=== PATIENT | male | born 1970 | race Caucasian/White ===

== ENCOUNTER 2023-06-24 04:31 | Emergency (ER) | payer OTHER, SELFPAY ==
[2023-06-24 04:33] VITALS: BP 133/84
[2023-06-24 04:56] VITALS: BP 112/74
--- NOTE | 2023-06-24 04:59 | ED.GENMED ---
History of Present Illness
<YULIANA Hansen - Last Filed: 06/24/23 06:11>
General
Chief Complaint: Dizziness
Source: patient
Time Seen by Provider: 06/24/23 04:59
Travel History
Have you had any contact with someone who has COVID-19?: No
Do you have any symptoms of coronavirus? Fever > 100 degrees, chills, cough, shortness of breath, sore throat, loss of taste or smell, muscle aches, or headache?: No
History of Present Illness
History of Present Illness:
Pt is a 53 year old male presenting for vertigo. He describes the vertigo as a spinning sensation and states it feels like 'I am going to fall over'. He reports it began at 2 am when he got out of bed. He also reports associated diarrhea, diffuse
pins and needles sensation, and nausea since 2 am. He denies vomiting, SOB, chest pain, double vision, tinnitus, hearing loss, MARTINEZ, numbness, weakness, associated trauma, photophobia. He reports he has been drinking water. He states when he walks the
spinning sensation is worse. He reports he has not taken anything to attempt to improve his symptoms. He states he was here on 03/25/23 for similar symptoms and states he fell from his vertigo during that episode. He state nothing was done for his
vertigo at that time and reports no abnormal findings.
Past History
<YULIANA Hansen - Last Filed: 06/24/23 06:11>
Past History
ED Past Medical History: HTN and Hypercholesterolemia
ED Past Surgical History: Orthopedic
Patient has exhibited threatening behavior?: No
Social History
Tobacco: Non-smoker
Alcohol: None
Drug: None
Personal:
Living: with family
Family History
Family History: Negative Diabetes, Hypertension or CAD
Review of Systems
<YULIANA Hansen - Last Filed: 06/24/23 06:11>
Review of Systems
All Other Systems: Not applicable
Constitutional: Reports no symptoms
EENT: Reports no symptoms
Respiratory: Reports no symptoms
Cardiac: Reports no symptoms
ABD/GI: Reports abdominal pain (mild), nausea and diarrhea
: Reports no symptoms
Musculoskeletal: Reports no symptoms
Skin: Reports no symptoms
Neurological: Reports other (vertigo, pins and needles sensation)
Endocrine: Reports no symptoms
Hematologic/Lymphatic: Reports no symptoms
Psychiatric: Reports depression
Phy Exam
<YULIANA Hansen - Last Filed: 06/24/23 06:11>
General Physical Exam
General Presentation: well appearing and no apparent distress
General age: appears stated age
General Skin: warm and dry
General Habitus: obese
General Mental: alert
General Hydration: dry mucous membranes
ENT Exam
ENT Exam: EOMI, TM's normal (cerumen present in canal), pharynx normal, neck supple and normocephalic
Eye Exam
Eye Exam: PERRL, EOMI and conjunctiva normal
Cardiovascular Exam
Cardiovascular Exam: regular rate/rhythm, no edema and no murmur
Pulmonary Exam
Pulmonary Exam: lungs clear, no respiratory distress, no rales, no crackles, no rhonchi, no wheezing and no cough
Gastrointestinal Exam
Gastrointestinal Exam: normal bowel sounds, non tender and soft
Neurological Exam
Neurological Exam: alert, oriented x3, no sensory deficits and other (Vertigo sensation elicited with lateral rotation of head.)
Mental
Mental Status: oriented to person, oriented to place, oriented to time and responds to voice
Sensory
Sensory Exam: intact
Cerebellar
Cerebellar Function: normal finger to nose
Skin Exam
Skin Exam: normal color and warm/dry
Psychiatric Exam
Psychiatric Exam: normal mood/affect
Course
<ST JadeHI - Last Filed: 06/24/23 06:11>
Orders/Labs/Results
Orders:
Orders
06/24/23 04:38
Electrocardiogram (*1) Urgent
Reason for Study: Vertigo / Dizzy
EKG- Treatment ONCE
06/24/23 04:57
CMP [Comprehensive Metabolic Panel] Urgent
Complete Blood Count/With Diff Urgent
Manual Differential Urgent
06/24/23 05:19
0.9% Sodium Chloride 500 ml [Nss] 500 ml IV BOLUS
06/24/23 05:21
CT Head W/o Iv Contrast Urgent
Comment:
Reason For Exam: vertigo
06/24/23 05:51
Meclizine [Antivert] 25 mg PO NOW STA
06/24/23 06:31
0.9% Sodium Chloride 1000 ml [Nss] 1,000 ml IV BOLUS
06/24/23 06:42
0.9% Sodium Chloride 500 ml [Nss] 0 ml IV ONCE
06/24/23 06:45
0.9% Sodium Chloride 500 ml [Nss] 500 ml IV BOLUS
Abnormal Lab Results
06/24/23
04:57
WBC 11.4 H 10^3/uL
(4.8-10.8)
RBC 4.64 L 10^6/uL
(4.70-6.10)
Hct 38.5 L %
(39.0-52.0)
Carbon Dioxide 21 L mmol/L
(22-30)
BUN 22 H mg/dl
(9-20)
Glucose 126 H mg/dl
(70-99)
Calcium 10.3 H mg/dl
(8.4-10.2)
06/24/23 04:57
06/24/23 04:57
Vital Signs
Initial and Last Documented VS:
Initial Vital Signs
Temp Pulse Resp BP Pulse Ox
98 F 86 24 133/84 97
06/24/23 04:33 06/24/23 04:33 06/24/23 04:33 06/24/23 04:33 06/24/23 04:33
Last Documented Vital Signs
Temp Pulse Resp BP Pulse Ox
98 F 71 19 110/69 92
06/24/23 04:33 06/24/23 05:30 06/24/23 05:30 06/24/23 05:00 06/24/23 05:30
<Smooth Douglas, DO - Last Filed: 06/24/23 06:34>
Orders/Labs/Results
Orders:
Orders
06/24/23 04:38
Electrocardiogram (*1) Urgent
Reason for Study: Vertigo / Dizzy
EKG- Treatment ONCE
06/24/23 04:57
CMP [Comprehensive Metabolic Panel] Urgent
Complete Blood Count/With Diff Urgent
Manual Differential Urgent
06/24/23 05:19
0.9% Sodium Chloride 500 ml [Nss] 500 ml IV BOLUS
06/24/23 05:21
CT Head W/o Iv Contrast Urgent
Comment:
Reason For Exam: vertigo
06/24/23 05:51
Meclizine [Antivert] 25 mg PO NOW STA
06/24/23 06:31
0.9% Sodium Chloride 1000 ml [Nss] 1,000 ml IV BOLUS
06/24/23 06:42
0.9% Sodium Chloride 500 ml [Nss] 0 ml IV ONCE
06/24/23 06:45
0.9% Sodium Chloride 500 ml [Nss] 500 ml IV BOLUS
Abnormal Lab Results
06/24/23
04:57
WBC 11.4 H 10^3/uL
(4.8-10.8)
RBC 4.64 L 10^6/uL
(4.70-6.10)
Hct 38.5 L %
(39.0-52.0)
Carbon Dioxide 21 L mmol/L
(22-30)
BUN 22 H mg/dl
(9-20)
Glucose 126 H mg/dl
(70-99)
Calcium 10.3 H mg/dl
(8.4-10.2)
06/24/23 04:57
06/24/23 04:57
Vital Signs
Initial and Last Documented VS:
Initial Vital Signs
Temp Pulse Resp BP Pulse Ox
98 F 86 24 133/84 97
06/24/23 04:33 06/24/23 04:33 06/24/23 04:33 06/24/23 04:33 06/24/23 04:33
Last Documented Vital Signs
Temp Pulse Resp BP Pulse Ox
98 F 71 19 110/69 92
06/24/23 04:33 06/24/23 05:30 06/24/23 05:30 06/24/23 05:00 06/24/23 05:30
<Francisco Contreras MD - Last Filed: 06/24/23 08:23>
Orders/Labs/Results
Orders:
Orders
06/24/23 04:38
Electrocardiogram (*1) Urgent
Reason for Study: Vertigo / Dizzy
EKG- Treatment ONCE
06/24/23 04:57
CMP [Comprehensive Metabolic Panel] Urgent
Complete Blood Count/With Diff Urgent
Manual Differential Urgent
06/24/23 05:19
0.9% Sodium Chloride 500 ml [Nss] 500 ml IV BOLUS
06/24/23 05:21
CT Head W/o Iv Contrast Urgent
Comment:
Reason For Exam: vertigo
06/24/23 05:51
Meclizine [Antivert] 25 mg PO NOW STA
06/24/23 06:31
0.9% Sodium Chloride 1000 ml [Nss] 1,000 ml IV BOLUS
06/24/23 06:42
0.9% Sodium Chloride 500 ml [Nss] 0 ml IV ONCE
06/24/23 06:45
0.9% Sodium Chloride 500 ml [Nss] 500 ml IV BOLUS
Abnormal Lab Results
06/24/23
04:57
WBC 11.4 H 10^3/uL
(4.8-10.8)
RBC 4.64 L 10^6/uL
(4.70-6.10)
Hct 38.5 L %
(39.0-52.0)
Carbon Dioxide 21 L mmol/L
(22-30)
BUN 22 H mg/dl
(9-20)
Glucose 126 H mg/dl
(70-99)
Calcium 10.3 H mg/dl
(8.4-10.2)
06/24/23 04:57
06/24/23 04:57
Vital Signs
Initial and Last Documented VS:
Initial Vital Signs
Temp Pulse Resp BP Pulse Ox
98 F 86 24 133/84 97
06/24/23 04:33 06/24/23 04:33 06/24/23 04:33 06/24/23 04:33 06/24/23 04:33
Last Documented Vital Signs
Temp Pulse Resp BP Pulse Ox
98 F 71 19 110/69 92
06/24/23 04:33 06/24/23 05:30 06/24/23 05:30 06/24/23 05:00 06/24/23 05:30
Amorlt;YULIANA Hansen - Last Filed: 06/24/23 06:11>
MDM/Problems Addressed
Differential Diagnosis Includes:
BPPV, Meniere's disease, vestibular neuritis, dehydration, space occupying lesion
MDM/Problems Addressed:
Vertigo since 2 a.m.
Chronic conditions affecting care: HTN
<YULIANA Hansen - Last Filed: 06/24/23 06:11>
*EKG
Interpreted by ED Provider?: Yes
Interpretation: abnormal
Comparison EKG: no changes
Rate: normal
Rhythm: sinus
*Critical Care Note
Total Time (30-74mins, 75-104mins- exclusive of procedures): Not Applicable
Data Reviewed
Review of Other/Old Records Reveals: Records and Discharge Summary
Source: records
<Francisco Contreras MD - Last Filed: 06/24/23 08:23>
Update Note
Update Note:
Pt reports sig. improvement after treatment. Pt able to ambulated independently with steady gait, prior to discharge. Prescription for meclizine will be provided, to be used at home, along with pcp/neurology f/u. Pt expresses understanding at time
of discharge.
ED Attending Note
<YULIANA Hansen - Last Filed: 06/24/23 06:11>
-
Portions of this chart may have been created with voice recognition software.� Occasional wrong word or��sound alike� substitutions may have occurred due to the inherent limitations of voice recognition software.
<Smooth Douglas DO - Last Filed: 06/24/23 06:34>
ED Attending Note
Patient seen and examined by attending physician: Yes
I performed the substantive portion of visit, reviewed & personally made and approve the management plan that is documented in note by myself or QAMAR.: Yes
ED Attending Note:
Pleasant 53-year-old male presents with symptoms consistent with vertigo. He states that he felt that he was going to fall over. Symptoms began around 2 AM when he got out of bed. Patient denies chest pain or shortness of breath. He states that
he had similar symptoms when he was here in February. Patient denies fever, chills, chest pain, or shortness of breath. Patient was seen in conjunction with the PA student. I have reviewed and agree with the history and treatment plan presented.
On my independent physical exam, patient is awake, alert, and oriented x3 heart is regular rate rhythm. Lungs are clear to auscultation bilaterally no wheezes rales or rhonchi
Discharge Plan
Departure
Patient Disposition: Home (Routine Discharge)
Date of Disposition: 06/24/23
Time of Disposition: 08:19
Patient with high blood pressure during this ER visit?: No
Condition: Good
Covid-19: Not Applicable
Discharge Problem:
Vertigo
Instructions: Vertigo (a type of dizziness), Dehydration, Adult (DC)
Prescriptions:
New
meclizine 25 mg tablet
25 mg PO TID Qty: 20 0RF
No Action
escitalopram oxalate 10 MG tablet
10 mg PO DAILY
diphenoxylate-atropine 1 TABLET tablet
1 tab PO Q6HPRN PRN (Reason: diarrhea) Qty: 12 0RF
losartan
1 tab PO DAILY
Patient Comments:
unsure of mg
Referrals:
Arti Chan, DO [Active] -
UNKNOWN - PT DOES,NOT KNOW [Family Provider] -
Activity Restrictions/Additional Instructions:
It was a pleasure meeting you and taking part in your care. We hope for your continued healing and wellness.
Please read discharge instructions in their entirety. However, they are for general education and may not describe your exact diagnosis at discharge. Information on your ER visit and medical conditions were discussed with you along with appropriate
follow up information...
If indicated, please take your medications as instructed and indicated on discharge paperwork.
Please schedule a follow up appointment as directed. Call to schedule an appointment
Please return to the emergency department with ANY change in, persisting, or worsening of symptoms. If any of your symptoms do not improve, or persist, or become more severe within 6-12 hours, please return to the emergency department for further
care.
Please return to the emergency department if you develop a headache, neck pain/stiffness, fever greater than 100.4F, chest pain, shortness of breath, persistent nausea, vomiting, slurred speech, difficulty walking, numbness/tingling, weakness, signs
of infection or any other symptoms that are worrisome to you.
If you have any questions or concerns please do not hesitate to call the Hospital at or E-mail me directly at [email or web address]
Interventions
Interventions:
*Risk Screen - Suicide Last Done: 06/24/23 04:50
*General Assessment Last Done: 06/24/23 04:50
ED- Fall Risk Assessment Last Done: 06/24/23 04:50
*ED COVID-19 Vaccine History Last Done: 06/24/23 04:50
ED- Neurological Assessment Last Done: 06/24/23 04:50
ED- Cardiac Assessment Last Done: 06/24/23 04:50
ED Swallowing Screen Last Done: 06/24/23 04:50
Discharge Date and Time
Print Language: OCCITAN
[2023-06-24 05:00] VITALS: BP 110/69
[2023-06-24 05:06] VITALS: BMI 39.4
[2023-06-24 05:09] LABS: Hematocrit 38.5 % (39.0-52.0); Hemoglobin 13.3 g/dL (13.0-18.0); Mean Corp Hgb Conc. 34.5 g/dL (33.0-37.0); Mean Corpuscular Hgb 28.7 pg (27.0-31.0); Mean Platelet Volume 9.5 fL (7.4-10.4); Nucleated Red Blood Cells % 0 % (-); Platelet Count 327 10^3/uL (130-400); Red Blood Cell Count 4.64 10^6/uL (4.70-6.10); Red Cell Dist. Width 13.7 % (11.5-14.5); White Blood Cell Count 11.4 10^3/uL (4.8-10.8)
[2023-06-24 05:18] LABS: ALT (SGPT) 28 U/L (0-50); AST (SGOT) 25 U/L (17-59); Albumin 4.8 g/dl (3.5-5.0); Alkaline Phosphatase 97 U/L (38-126); Blood Urea Nitrogen 22 mg/dl (9-20); Calcium 10.3 mg/dl (8.4-10.2); Carbon Dioxide 21 mmol/L (22-30); Chloride 103 mmol/L (98-107); Estimated Creatinine Clearance > 125 ml/min; Glucose 126 mg/dl (70-99); Potassium 3.8 mmol/L (3.5-5.1); Sodium 138 mmol/L (135-145); Total Bilirubin 0.4 mg/dl (0.2-1.3); Total Protein 7.8 g/dl (6.3-8.2); eGFR > 60.00
[2023-06-24] MEDS: NSS 500 IV ×2 (05:32→05:50)
[2023-06-24 05:42] LABS: Segmented Neutrophils 45 % (42-75)
[2023-06-24 05:43] LABS: Absolute Neutrophils -Man Diff 5.1 10^3/uL (1.4-6.5); Atypical Lymphocytes 6 %; Band Neutrophils 0 % (0-3); Eosinophils 3 % (0-6); Lymphocytes 37 % (20-51); Monocytes 9 % (2-9); Normal RBC Morphology Yes; Platelets Checked Yes; Total Cells Counted 100
[2023-06-24] MEDS: ANTIVERT 25 MG PO (06:01)
[2023-06-24] MEDS: NSS 1000 IV (06:41)
[2023-06-24 07:51] VITALS: BP 130/70
[2023-06-24 08:54] VITALS: BP 124/78
== END 2023-06-24 08:55 | disposition home or self-care (01) ==
LOC: EMR 04:31
PROVIDERS: EMERGENCY PHYSICIAN Student in an Organized Health Care Education/Training Program
DX: R42 Dizziness and giddiness (principal); R20.2 Paresthesia of skin; R10.9 Unspecified abdominal pain; R11.0 Nausea; R19.7 Diarrhea, unspecified; I10 Essential (primary) hypertension
CPT/HCPCS: 99285; 96360; 96361; 70450; 80053; 85025; 93005